=== PATIENT | female | born 2000 | race Hispanic/Latino ===

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

== ENCOUNTER 2018-02-28 12:22 | Emergency (ER) | payer OTHER ==
[2018-02-28 13:20] LABS: ABSOLUTE BASOPHIL COUNT 0 /CUMM (0.0-0.2); ABSOLUTE EOSINOPHIL COUNT 0 /CUMM (0.0-0.7); ABSOLUTE GRANULOCYTE CT 6.6 /CUMM (1.4-6.5); ABSOLUTE LYMPH COUNT 1.8 /CUMM (1.2-3.4); ABSOLUTE MONOCYTE COUNT 0.4 /CUMM (0.10-0.60); BASOPHIL % 0.2 % (0.0-2.0); EOSINOPHIL % 0.5 % (0-5); GRANULOCYTE % 74.7 % (42.2-75.2); HEMATOCRIT 34.3 % (37-47); MEAN CORPUSCULAR HGB 28.4 PG (27.0-31.0); MEAN CORPUSCULAR HGB CONC 34.9 G/DL (33.0-37.0); MEAN CORPUSCULAR VOLUME 81.4 FL (81.0-99.0); MEAN PLATELET VOLUME 8.8 FL (7.4-10.4); PLATELET COUNT 234 /CUMM (130-400); RBC DISTRIBUTION WIDTH 14.5 % (11.5-14.5); RED BLOOD CELL CT 4.21 /CUMM (4.20-5.40); WHITE BLOOD CELL COUNT 8.9 /CUMM (4.8-10.8)
--- NOTE | 2018-02-28 15:53 | ULTRASOUND REPORT ---
EXAMINATION: US TRANSVAGINAL CLINICAL INFORMATION: First trimester with spotting for one day and left lower quadrant cramping. Positive test. LMP 01/25/2018. Based on dates, the estimated date of delivery is 11/01/2018. COMPARISON: None this . TECHNIQUE: Transabdominal and endovaginal examination of the pelvis. Grayscale and color Doppler imaging were combined with pulse-wave Doppler interrogation spectral analysis. FINDINGS: Based on dates, as of today, gestational age would be 4 weeks 6 days. There is thickening of the endometrium in the anteverted uterus. However, no recognizable products of conception are visualized at this time. Very small amount of free fluid is in the cul-de-sac. The ovaries are normal in size and echo appearance. The right ovary measures 2.8 x 1.8 x 2.1 cm. The left ovary measures 2.8 x 2.0 x 2.4 cm. Based on spectral analysis, the left ovary is metabolically active. No abnormal adnexal masses are detected. IMPRESSION: Currently no intrauterine visualized. Recommend follow-up and serial beta hCG determinations.
--- NOTE | 2018-02-28 16:07 | ED GENERAL ADULT ---
History of Present Illness General Chief Complaint: Abdominal Pain/Flank Pain Stated Complaint: LOWER ABD PAIN +5WKS PREG Vital Signs & Intake/Output Vital Signs & Intake/Output Vital Signs Date Time Temp Pulse Resp B/P B/P Pulse O2 O2 Flow FiO2 Mean Ox Delivery Rate 02/28 1304 980.0 87 16 105/72 99 Room Air Room Air Allergies Coded Allergies: No Known Allergies (02/28/18) Reconcile Medications Oxycodone HCl/Acetaminophen (Percocet 5-325 MG Tablet) 5 MG-325 MG TABLET 1 TAB PO BID PRN PAIN Triage Note: PT TO TRIAGE WITH LLQ PAIN FOR 1 WEEK. PT STATES SHE HAD PINK SPOTTING LAST WEEK. PT HAD A POSITIVE UPREG LAST WEEK. PT HAS NOT SEEN OBGYN YET. DENIES FEVERS. PAIN BECAME WORSE TODAY. 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 Surgical History Surgical History: non-contributory Psychosocial History What is your primary language Mauritian Tobacco Use: Quit >30 days ago Daily Tobacco Use Amount/Type: => 5 Cigarettes daily ETOH Use: heavy use Illicit Drug Use: denies illicit drug use Progress Plan of Care: Orders Procedure Date/time Status URINALYSIS 02/28 125 Complete HUMAN BETA HCG TITRE 02/28 125 Complete COMPREHENSIVE METABOLIC PANEL 02/28 1255 Complete CBC WITHOUT DIFFERENTIAL 02/28 125 Complete TYPE & SCREEN (NOT X-MATCH) 02/28 1255 Complete Laboratory Tests 02/28/18 1310: Anion Gap 13, Estimated GFR > 60, BUN/Creatinine Ratio 15.0, Glucose 101 H, Calcium 9.5, Total Bilirubin 0.4, AST 13 L, ALT 13, Alkaline Phosphatase 71, Total Protein 7.1, Albumin 4.4, Globulin 2.7, Albumin/Globulin Ratio 1.6, Beta HCG, Quant 383.6, CBC w Diff NO MAN DIFF REQ, RBC 4.21, MCV 81.4, MCH 28.4, MCHC 34.9, RDW 14.5, MPV 8.8, Gran % 74.7, Lymphocytes % 20.6, Monocytes % 4.0, Eosinophils % 0.5, Basophils % 0.2, Absolute Granulocytes 6.6 H, Absolute Lymphocytes 1.8, Absolute Monocytes 0.4, Absolute Eosinophils 0, Absolute Basophils 0 02/28/18 1300: Urinalysis LIGHT H, Urine Color YEL, Urine Clarity HAZY H, Urine pH 7.0, Ur Specific [place] 1.010, Urine Protein NEG, Urine Ketones NEG, Urine Nitrite NEG, Urine Bilirubin NEG, Urine Urobilinogen 0.2, Ur Leukocyte Esterase MOD H, Ur Microscopic SEDIMENT EXAMINED, Urine RBC 1-3, Urine WBC 5-10 H, Ur Epithelial Cells MOD H, Urine Bacteria FEW H, Urine Hemoglobin TRACE-INTACT, Urine Glucose NEG Departure Departure Condition: Stable Referrals: Yordan GAR,Juan David Lechuga (PCP/Family) Departure Forms: Customer Survey General Discharge Information
--- NOTE | 2018-02-28 17:18 | ED GI/GU/ABDOMINAL COMPLAINT ---
History of Present Illness General Chief Complaint: Abdominal Pain/Flank Pain Stated Complaint: LOWER ABD PAIN +5WKS PREG Source: patient Exam Limitations: no limitations Vital Signs & Intake/Output Vital Signs & Intake/Output Vital Signs Date Time Temp Pulse Resp B/P B/P Pulse O2 O2 Flow FiO2 Mean Ox Delivery Rate 02/28 1743 97.9 79 16 116/78 99 Room Air 02/28 1304 980.0 87 16 105/72 99 Room Air Room Air Allergies Coded Allergies: No Known Allergies (02/28/18) Reconcile Medications Oxycodone HCl/Acetaminophen (Percocet 5-325 MG Tablet) 5 MG-325 MG TABLET 1 TAB PO BID PRN PAIN Triage Note: PT TO TRIAGE WITH LLQ PAIN FOR 1 WEEK. PT STATES SHE HAD PINK SPOTTING LAST WEEK. PT HAD A POSITIVE UPREG LAST WEEK. PT HAS NOT SEEN OBGYN YET. DENIES FEVERS. PAIN BECAME WORSE TODAY. PT LAST PERIOD WAS , Triage Nurses Notes Reviewed? yes ? N Is pt currently ? No Onset: Gradual Duration: constant Timing: recent history Quality/Severity: cramping Severity Numbers: 5 Location: left lower quadrant HPI: Patient is a 17-year-old female who is a G for P1 with a test approximate one week ago was positive who states that she had 5 days ago of mild pink vaginal bleeding that resolved within 2 hours and none since however is had persistent minimal left lower quadrant abdominal pain. Patient is able tolerate by mouth no change in symptoms. Denies any fever chills dysuria hematuria current vaginal bleeding or discharge or back pain. (Demetrio Whitfield) Past History Travel History Traveled to [place] past 21 day No Medical History Any Pertinent Medical History? 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 No (Demetrio Whitfield) Review of Systems Review of Systems Constitutional: Reports: no symptoms. EENTM: Reports: no symptoms. Respiratory: Reports: no symptoms. Cardiovascular: Reports: no symptoms. GI: Reports: see HPI, abdominal pain. Genitourinary: Reports: see HPI. Musculoskeletal: Reports: no symptoms. Skin: Reports: no symptoms. Neurological/Psychological: Reports: no symptoms. Hematologic/Endocrine: Reports: no symptoms. Immunologic/Allergic: Reports: no symptoms. All Other Systems: Reviewed and Negative (Demetrio Whitfield) Physical Exam Physical Exam General Appearance: no apparent distress, alert, comfortable Head: atraumatic Eyes: Bilateral: normal appearance. Ears, Nose, Throat, Mouth: hearing grossly normal Neck: normal inspection Respiratory: normal breath sounds, chest non-tender Cardiovascular: regular rate/rhythm Gastrointestinal: normal bowel sounds, soft, MILD LLQ PAIN NO REBOUND TENDERNESS Extremities: normal range of motion Neurologic/Psych: no motor/sensory deficits, awake Core Measures ACS in differential dx? No Sepsis Present: No Sepsis Focused Exam Completed? No (Demetrio Whitfield) Progress Differential Diagnosis: appendicitis, biliary colic, bowel obstruction, colon cancer, cholecystitis, diverticulitis, ectopic , endometritis, esophageal varices, gastritis, hepatitis, hernia, hemorrhoids, ischemic bowel, inflamm bowel dis, intrauterine , kidney stone, ovarian cyst, ovarian torsion, pancreatitis, PID/cervicitis, peptic ulcer, PUD/GERD, perforated viscous, SBO, threatened AB, UTI/pyelo Plan of Care: Orders Procedure Date/time Status URINALYSIS 02/28 1255 Complete HUMAN BETA HCG TITRE 02/28 1255 Complete COMPREHENSIVE METABOLIC PANEL 02/28 1255 Complete CBC WITHOUT DIFFERENTIAL 02/28 1255 Complete TYPE & SCREEN (NOT X-MATCH) 02/28 1255 Complete Laboratory Tests 02/28/18 1310: Anion Gap 13, Estimated GFR > 60, BUN/Creatinine Ratio 15.0, Glucose 101 H, Calcium 9.5, Total Bilirubin 0.4, AST 13 L, ALT 13, Alkaline Phosphatase 71, Total Protein 7.1, Albumin 4.4, Globulin 2.7, Albumin/Globulin Ratio 1.6, Beta HCG, Quant 383.6, CBC w Diff NO MAN DIFF REQ, RBC 4.21, MCV 81.4, MCH 28.4, MCHC 34.9, RDW 14.5, MPV 8.8, Gran % 74.7, Lymphocytes % 20.6, Monocytes % 4.0, Eosinophils % 0.5, Basophils % 0.2, Absolute Granulocytes 6.6 H, Absolute Lymphocytes 1.8, Absolute Monocytes 0.4, Absolute Eosinophils 0, Absolute Basophils 0 02/28/18 1300: Urinalysis LIGHT H, Urine Color YEL, Urine Clarity HAZY H, Urine pH 7.0, Ur Specific [place] 1.010, Urine Protein NEG, Urine Ketones NEG, Urine Nitrite NEG, Urine Bilirubin NEG, Urine Urobilinogen 0.2, Ur Leukocyte Esterase MOD H, Ur Microscopic SEDIMENT EXAMINED, Urine RBC 1-3, Urine WBC 5-10 H, Ur Epithelial Cells MOD H, Urine Bacteria FEW H, Urine Hemoglobin TRACE-INTACT, Urine Glucose NEG Upon initial presentation of patient she was in no apparent distress resting comfortable at bedside patient was normotensive denies any current vaginal bleeding or discharge or UTI symptoms. Patient type and screen was resulted no warranting of RHOGAM Patient's ultrasound was resulted no concerns at this time of ectopic patient was given copies of all blood work and ultrasound and was given a prescription of a repeat beta Quant in 2 days. She was strongly advised to follow-up with her CHILD PSYCHOLOGY TEACHER. NO CONCERN OF APPENDICITIS Discussed patient with Dr. Cabello Diagnostic Imaging: Viewed by Me: Ultrasound. Radiology Impression: SEE COMMENTS Initial ED EKG: none Comments: PATIENT: LETA ALARCON PRESENT AGE: 17 PATIENT ACCOUNT NO: [id number] : 98 LOCATION: [facility] ORDERING PHYSICIAN: Darius REYES SERVICE DATE: 02/28/18-8 EXAM TYPE: US - US TRANSVAG EXAMINATION: US TRANSVAGINAL CLINICAL INFORMATION: First trimester with spotting for one day and left lower quadrant cramping. Positive test. LMP 01/25/2018. Based on dates, the estimated date of delivery is 11/01/2018. COMPARISON: None this . TECHNIQUE: Transabdominal and endovaginal examination of the pelvis. Grayscale and color Doppler imaging were combined with pulse-wave Doppler interrogation spectral analysis. FINDINGS: Based on dates, as of today, gestational age would be 4 weeks 6 days. There is thickening of the endometrium in the anteverted uterus. However, no recognizable products of conception are visualized at this time. Very small amount of free fluid is in the cul-de-sac. The ovaries are normal in size and echo appearance. The right ovary measures 2.8 x 1.8 x 2.1 cm. The left ovary measures 2.8 x 2.0 x 2.4 cm. Based on spectral analysis, the left ovary is metabolically active. No abnormal adnexal masses are detected. IMPRESSION: Currently no intrauterine visualized. Recommend follow-up and serial beta hCG determinations. DICTATED BY: Srinivasa Jones MD DATE/TIME DICTATED:02/28/181535 WRISTER:ALMITA DATE/TIME TRANSCRIBED:02/28/181535 CONFIDENTIAL, DO NOT COPY WITHOUT APPROPRIATE AUTHORIZATION. <Electronically signed in Other Vendor System> SIGNED BY: Srinivasa Jones MD [id number] (Demetrio Whitfield) Departure Departure Disposition: HOME OR SELF CARE Condition: Stable Clinical Impression Primary Impression: Abdominal pain during Secondary Impressions: Threatened Referrals: Yordan GAR,Juan David Lechuga (PCP/Family) Additional Instructions: As discussed begin [id number] Tylenol for pain, follow-up with your CHILD PSYCHOLOGY TEACHER tomorrow and please obtain repeat blood work with the prescription provided to the emergency room in 2 days. If symptoms worsen or if he develop new concerning symptom return to emergency room Departure Forms: Customer Survey General Discharge Information (Demetrio Whitfield) PA/[employer]IAN Co-Sign Statement Statement: ED Attending supervision documentation- [] I saw and evaluated the patient. I have also reviewed all the pertinent lab results and diagnostic results. I agree with the findings and the plan of care as documented in the PA's/[employer] LIBRARIAN's documentation. [x] I have reviewed the ED Record and agree with the PA's/MIDD[employer] S[employer] LIBRARIAN's documentation. [] Additions or exceptions (if any) to the PAs/MIDDLE SCHOOL LIBRARIAN's note and plan are summarized below: [] (Buck Cabello DO)
[2018-02-28 17:43] VITALS: BP 116/78
[2018-03-03] MEDS ORDERED: NITROFURANTOIN100 M6 PO (22:40)
[2018-03-03] MEDS ORDERED: MECLIZINE HCL25 MG PO (23:29)
== END 2018-02-28 17:44 ==
LOC: ERH 12:22
PROVIDERS: Emergency Medicine
DX: O20.0 Threatened abortion (principal)
CPT/HCPCS: 76817; 81001